=== PATIENT | male | born 1980 | race African-American/Black ===

== ENCOUNTER 2019-09-05 12:12 | Day surgery (SDC) | payer MEDICARE, MEDICAID ==
[~2019-09-05] VITALS: Ht 182.9 cm; Wt 90.0 kg
[2019-09-05] MEDS ORDERED: VISCOUS LIDOCAINE 2% 15 ML UDC PO STA (12:55)
[2019-09-05] MEDS ORDERED: MAGNESIUM/ALUMINUM HYDROXIDE/SIMETHICONE 30ML UDC PO STA (12:55)
[2019-09-05] MEDS ORDERED: FAMOTIDINE 20MG TABLET PO ONE (13:00)
[2019-09-05] MEDS ORDERED: ONDANSETRON 4MG ODT PO ONE (13:00)
[2019-09-05 13:26] LABS: BASOPHILS % 0.6 % (0.0-2.0); EOSINOPHILS % 0.5 % (0.0-5.0); HEMATOCRIT. 42.6 % (42.0-52.0); HEMOGLOBIN. 14.9 g/dL (14.0-18.0); LYMPHOCYTES % 13.6 % (20.0-50.0); MEAN CORPUSCULAR HEMOGLOBIN 36.8 pg (28.0-32.0); MEAN CORPUSCULAR VOLUME 104.9 fL (80.0-94.0); MEAN PLATELET VOLUME 7.3 fl (7.4-10.4); MONOCYTES % 10.6 % (2.0-8.0); NEUTROPHILS % 74.7 % (40.0-76.0); PLATELET 388 x1000/uL (130-400); RED BLOOD CELL COUNT 4.06 mill/uL (4.7-6.1); RED CELL DISTRIBUTION WIDTH 12.6 % (11.6-14.6)
[2019-09-05 13:33] LABS: CHLORIDE 108 mEq/L (98-107)
[2019-09-05] MEDS ORDERED: ONDANSETRON HCL 4MG/2ML INJ IV STA (17:59)
[2019-09-05] MEDS ORDERED: SODIUM CHLORIDE 0.9% 1,000 ML IV ONE (17:59)
[2019-09-05] MEDS ORDERED: MORPHINE SULFATE 4 MG/ML CPJ (NOT FOR IM USE) IV STA (17:59)
[2019-09-05] MEDS ORDERED: DEXT 5%/LACTATED RINGERS 1,000 ML IV SCH (18:11)
[2019-09-05] MEDS ORDERED: LORAZEPAM 0.5MG TABLET PO PRN (18:15)
[2019-09-05] MEDS ORDERED: ACETAMINOPHEN 325MG TABLET PO PRN (18:15)
[2019-09-05] MEDS ORDERED: ONDANSETRON HCL 4MG/2ML INJ IV PRN (18:15)
[2019-09-05] MEDS ORDERED: NITROGLYCERIN 0.4MG TABLET SL SL PRN (18:15)
[2019-09-05] MEDS ORDERED: ZOLPIDEM TARTRATE 5MG TABLET PO PRN ×2 (18:15)
[2019-09-05] MEDS ORDERED: CLONIDINE 0.1MG TABLET PO PRN (18:15)
[2019-09-05] MEDS ORDERED: GUAIFENESIN 200MG/10ML SUGAR FREE UDC PO PRN (18:15)
[2019-09-05] MEDS ORDERED: NA PHOS,M-B/NA PHOS,DI-BA ENEMA 118ML PR PRN (18:15)
[2019-09-05] MEDS ORDERED: IPRATROPIUM/ALBUTEROL 0.5-3(2.5)MG/3ML NEB NEB PRN (18:15)
[2019-09-05] MEDS ORDERED: DOCUSATE SODIUM 100MG CAPSULE PO PRN (18:15)
[2019-09-05] MEDS ORDERED: ENOXAPARIN 40MG/0.4ML SYR SUBCUT SCH (18:15)
[2019-09-05] MEDS ORDERED: KETOROLAC 15MG/ML VIAL IV PRN (18:15)
[2019-09-05] MEDS ORDERED: TRAMADOL 50MG TABLET PO PRN (18:15)
[2019-09-05] MEDS ORDERED: MAGNESIUM/ALUMINUM HYDROXIDE/SIMETHICONE 30ML UDC PO PRN (18:15)
[2019-09-05 18:44] LABS: ETHANOL BLOOD < 10 mg/dL
[2019-09-05 18:46] LABS: TOTAL IRON BINDING CAPACITY 271 ug/dL (250-450)
[2019-09-05 19:00] LABS: FOLIC ACID (FOLATE) SERUM 15.5 ng/mL (>5.38)
[2019-09-05] MEDS ORDERED: CEFTRIAXONE 1 G PREMIX 50 ML IV NR (19:00)
[2019-09-05] MEDS ORDERED: FAMOTIDINE 20MG TABLET PO SCH (21:00)
[2019-09-05] MEDS ORDERED: SUCRALFATE 1 G/10 ML UDC PO SCH (21:00)
[2019-09-06 04:51] LABS: BASOPHILS % 0.9 % (0.0-2.0); EOSINOPHILS % 2.2 % (0.0-5.0); HEMATOCRIT. 38.4 % (42.0-52.0); HEMOGLOBIN. 13.4 g/dL (14.0-18.0); LYMPHOCYTES % 47.6 % (20.0-50.0); MEAN CORPUSCULAR HEMOGLOBIN 36.9 pg (28.0-32.0); MEAN CORPUSCULAR VOLUME 105.8 fL (80.0-94.0); MEAN PLATELET VOLUME 7.6 fl (7.4-10.4); MONOCYTES % 12.7 % (2.0-8.0); NEUTROPHILS % 36.6 % (40.0-76.0); PLATELET 340 x1000/uL (130-400); RED BLOOD CELL COUNT 3.63 mill/uL (4.7-6.1); RED CELL DISTRIBUTION WIDTH 12.4 % (11.6-14.6)
[2019-09-06 04:56] LABS: CHLORIDE 106 mEq/L (98-107)
[2019-09-06] MEDS ORDERED: METRONIDAZOLE 500 MG PREMIX 100 ML IV SCH (05:00)
[2019-09-06] MEDS ORDERED: SKIN ADHESIVE 0.7 GM EA TOP ONE (07:12)
[2019-09-06] MEDS ORDERED: BUPIVACAINE HCL 0.5% (5MG/ML) 50ML ONE (07:12)
[2019-09-06] MEDS ORDERED: FENTANYL CITRATE/PF 50MCG/ML 2ML VIAL ONE (07:35)
[2019-09-06] MEDS ORDERED: PROPOFOL 200MG/20ML VIAL IV ONE (07:35)
[2019-09-06] MEDS ORDERED: MIDAZOLAM HCL 2 MG/2 ML VIAL ONE (07:35)
[2019-09-06] MEDS ORDERED: ROCURONIUM BROMIDE 10MG/ML VIAL 5ML IV ONE (07:35)
[2019-09-06] MEDS ORDERED: LIDOCAINE HCL/PF 1% 10 MG/ML 5ML VIAL ONE (07:36)
[2019-09-06] MEDS ORDERED: CEFAZOLIN SODIUM 1000MG/VIAL ONE (07:36)
[2019-09-06] MEDS ORDERED: ONDANSETRON HCL 4MG/2ML INJ ONE (07:57)
[2019-09-06] MEDS ORDERED: METOCLOPRAMIDE HCL 10MG/2ML VIAL ONE (07:57)
[2019-09-06] MEDS ORDERED: NEOSTIGMINE METHYLSULFATE 1MG/ML 10 ML VIAL ONE (08:13)
[2019-09-06] MEDS ORDERED: GLYCOPYRROLATE 0.2 MG/ML 2ML VIAL ONE (08:13)
[2019-09-06] MEDS ORDERED: MEPERIDINE HCL/PF 25MG/ML CPJ IV PRN (08:30)
[2019-09-06] MEDS: HYDROMORPHONE HCL/PF 2MG/ML CPJ IV PRN ×3 (08:49→09:33)
[2019-09-06] MEDS ORDERED: CEFTRIAXONE 1 G PREMIX 50 ML IV SCH (09:00)
[2019-09-06] MEDS ORDERED: KETOROLAC 30MG/ML VIAL ONE (09:32)
[2019-09-06 09:33] VITALS: BP 131/85
[2019-09-06] MEDS ORDERED: HYDROCODONE/ACETAMINOPHEN 5/325MG TABLET PO PRN (10:15)
== END 2019-09-06 10:35 | disposition home or self-care (01) ==
LOC: ER 13:07 → SUPCPDRO 18:16 → OR 09-06 07:00 → ENRESERV 09-06 07:41 → CANRESERV 09-06 07:41 → OR 09-06 10:35 → CANBEDREQ 09-06 22:44
PROVIDERS: ATTEND Surgery
DX: K80.00 Calculus of gallbladder with acute cholecystitis without obstruction (principal); J45.909 Unspecified asthma, uncomplicated; F17.210 Nicotine dependence, cigarettes, uncomplicated; Z21 Asymptomatic human immunodeficiency virus [HIV] infection status; Z79.899 Other long term (current) drug therapy; Z98.890 Other specified postprocedural states
CPT/HCPCS: 36415; 47562; 71045; 76705; 78227; 80053; 80320; 82607; 82746; 83036; 83540; 83550; 83690; 85025; 88304; 93005; 93970; 96361; 96365; 96367; 96375; 96376; 99285; A9537; J0696; J2270; J2405; J7030; Q0162; G0480